=== PATIENT | male | born 1975 | race Caucasian/White ===

== ENCOUNTER 2016-09-21 04:53 | Emergency (ER) | payer BC, OTHER ==
--- NOTE | 2016-09-21 05:25 | ERNOTE ---
ER Male HPI Date of Service: 09/21/16 Stated Complaint: TROUBLE URINATING ER Male: urinary retention Time Seen by Provider: 09/21/16 05:18 Source: patient Exam Limitations: no limitations Immunizations: IMMUNIZATION HX Immunizations Up to Date Yes History of Influenza Vaccine No Allergies/Adverse Reactions: Allergies No Known Allergies Allergy (Verified 09/21/16 05:02) Home Medications: HOME MEDICATIONS Atenolol [Tenormin] 50 mg PO DAILY 07/12/12 [Last Taken Unknown] Omeprazole [Prilosec] 20 mg PO DAILY 04/30/15 [Last Taken Unknown] Atorvastatin Calcium [Lipitor] 20 mg PO HS 09/21/16 [Last Taken Unknown] - History of Present Illness Narrative: Pt claims he developed urinary hesitancy, and dribbling about 3 days ago, which got progressively worse. Did not notice any hematuria or dysuria. Tonight, developed complete urinary retention and severe suprapubic pressure. Has h/o kidney stone. Date (Duration): 09/18/16 Timing: Present: constant, getting worse Quality: Present: severe, fullness Onset Location: Present: suprapubic Radiation: Present: none Prior Abdominal Problems: Present: similar symptoms - about two years ago with kidney stone. Associated Symptoms: Absent: fever/chills, diaphoresis, nausea, vomiting, dysuria, urinary frequency, polyuria, loss of bladder control Review of Systems - Review of Systems Constitutional: Present: no symptoms reported EYE: Present: no symptoms reported ENT: Present: no symptoms reported Respiratory: Present: no symptoms reported Cardiology: Present: no symptoms reported Gastrointestinal/Abdominal: Present: See HPI Genitourinary: Present: decreased urinary output Musculoskeletal: Present: no symptoms reported Skin: Present: no symptoms reported Neurological: Present: no symptoms reported Endocrine: Present: no symptoms reported Hematologic/Lymphatic: Present: no symptoms reported Psych: Present: no symptoms reported All Other Systems: All systems neg except as marked - Patient's Past Medical History Patient History - Medical: GERD, Kidney stone, UTI'S, Other Patient History - Cardiac/Respiratory: Hypertension, Hyperlipidemia Patient History - Cancer: No Hx of Cancer Patient History - Surgical Procedures: No surgical history - Social History Living Situations: home Smoking Status: Never smoker Alcohol Use: none Drug Use: none - Immunizations Immunizations Up to Date: Yes History of Influenza Vaccine: No Physical Exam - Physical Exam General Appearance: Present: wd/wn, alert, mild distress - Due to pain Neck: Present: normal inspection, nontender Respiratory: Present: no respiratory distress, normal breath sounds, no accessory muscle use, chest nontender, lungs clear Cardiovascular/Chest: Present: regular rate, rhythm, no murmur Gastrointestinal/Abdominal: Present: normal bowel sounds, nondistended, soft, no organomegaly, tenderness - Suprapubic Neurological Exam: Present: alert, oriented, normal mood/affect Skin Exam: Present: normal color, warm/dry ED Progress - Results and Orders Patient's Lab Results:: I have reviewed the patient's lab results. - Vital Signs Patient's Vital Signs:: I have reviewed the patient's vital signs. Vital Signs: Vital Signs 09/21/16 04:57 Temperature 36.5 C Pulse Rate 73 Respiratory 20 Rate Blood Pressure 151/91 O2 Sat by Pulse 96 Oximetry - CT/Ultrasound CT/Ultrasound Narrative: CT abd/pelvis stone protocol: As noted in report, no evidence of kidney stone; mildly distended urinary bladder - Progress/Reassessment Chief Complaint: Genitourinary Problem Progress:: Unchanged - Unable to insert a gil catheter due to resistance at the prostate. Plan - Plan Plan: Case discussed with Dr. Owusu, Urologist, [facility]; pt transfer to ER accepted. Departure Clinical Impression: Urinary retention - Departure Disposition: [facility] Condition: Stable Referrals: Krishna Stanton MD [Primary Care Provider] -
--- OUTSIDE RECORDS SUMMARY | 2016-09-21 05:34 | XMS REPORT | Continuity of Care Document ---
:1975 Author Organization [employer] [place] [address] Care Team Providers Name Role Phone Krishna Stanton Primary Care Provider [phone] Source Comments This disclosure is being made pursuant to the I-DISPO program and maynot contain all information available regarding this patient.[employer] Active Allergies and Adverse Reactions Not on File Current Medications Be aware that medications may not be up to date as of this document. Alwaysverify current medications with the patient. Not on file Active Problems Not on file Social History Tobacco Use Types Packs/Day Years Used Date Never Assessed Plan of Care Health Maintenance Due Date Last Done Comments Retired-Pertussis Vaccine Adult 02/18/1992 Retired-Tetanus Vaccine Adult 02/18/1992 Retired-INFLUENZA VACCINE 04/02/2015 Results from Last 3 Months Not on file
[2016-09-21 05:47] LABS: Hematocrit 48.8 % (42.0-52.0); Hemoglobin 16.5 gm/dL (13.5-18.0); Mean Cell Volume 84.4 fl (78-100); Mean Corpuscular Hemoglobin 28.5 pg (27-31); Mean Corpuscular Hgb Conc 33.8 g/dl (32-36); Mean Platelet Volume 11.2 fl (6.0-9.5); Neutrophil # 5.9 K/mm3 (1.3-6.0); Neutrophil % 63.5 % (42-75.0); Platelet Count 165 K/mm3 (150-450); Red Blood Count 5.78 M/mm3 (4.7-6.0); Red Cell Distribution Width 13.1 % (11.5-14.0); White Blood Count 9.2 K/mm3 (4.0-10.5)
[2016-09-21 05:56] LABS: Anion Gap 13.5 mmol/L (6.8-13.8); BUN/Creatinine Ratio 19.1 (9.0-21.6); Carbon Dioxide 28.7 mmol/L (24-32.6); Estimated Creat Clear 77.4; Potassium 4.2 mmol/L (3.4-4.6)
[2016-09-21] MEDS ORDERED: oxyCODONE HCL/ACETAMINOPHEN 1 TAB TABLET PO ONE (05:58)
[2016-09-21] MEDS ORDERED: oxyCODONE HCL/ACETAMINOPHEN 1 TAB TABLET ONE (05:59)
[2016-09-21 06:15] VITALS: BP 161/89
== END 2016-09-21 06:10 | disposition short-term general hospital (02) ==
LOC: ER 04:53
DX: R33.9 Retention of urine, unspecified (principal); E78.5 Hyperlipidemia, unspecified

== ENCOUNTER 2016-11-20 18:18 | Emergency (ER) | payer BC, OTHER ==
[2016-11-20] MEDS ORDERED: ORPHENADRINE CITRATE 30 MG/ML VIAL IM ONE (18:52)
[2016-11-20] MEDS ORDERED: KETOROLAC TROMETHAMINE 30 MG/ML VIAL IM ONE (18:52)
[2016-11-20] MEDS ORDERED: oxyCODONE HCL/ACETAMINOPHEN 1 TAB TABLET PO ONE (18:52)
[2016-11-20] MEDS ORDERED: KETOROLAC TROMETHAMINE 30 MG/ML VIAL ONE (18:57)
[2016-11-20] MEDS ORDERED: ORPHENADRINE CITRATE 30 MG/ML VIAL ONE (18:57)
[2016-11-20] MEDS ORDERED: oxyCODONE HCL/ACETAMINOPHEN 1 TAB TABLET ONE (18:57)
--- OUTSIDE RECORDS SUMMARY | 2016-11-20 19:05 | XMS REPORT | Continuity of Care Document ---
:1975 Author Organization [facility] [place] [address] Care Team Providers Name Role Phone Krishna Stanton Primary Care Provider [phone] Source Comments This disclosure is being made pursuant to the [employer] program and maynot contain all information available regarding this patient.[facility] Active Allergies and Adverse Reactions Not on [...]
--- NOTE | 2016-11-20 19:40 | ERNOTE ---
Lower Extremity HPI - Narrative Date of Service: 11/20/16 - General Lower Extremities Pain: hip: right - Pain on movement that is localized on the lateral side and radiates to the back area Time Seen by Provider: 11/20/16 18:47 Source: patient Exam Limitations: no limitations - Immun/Allergies/Home Medications Immunizations: IMMUNIZATION HX Immunizations Up to Date Yes History of Influenza Vaccine No Allergies/Adverse Reactions: Allergies Allergy/AdvReac Type Severity Reaction Status Date / Time No Known Allergies Allergy Verified 11/20/16 18:36 Home Medications: HOME MEDICATIONS Omeprazole [Prilosec] 20 mg PO DAILY 04/30/15 [Last Taken Unknown] Lisinopril [Zestril] 10 mg PO DAILY 11/20/16 [Last Taken Unknown] Naproxen 500 mg PO BID #20 tablet. 11/20/16 [Last Taken Unknown] Orphenadrine Citrate [Norflex] 100 mg PO Q12H #14 tablet. 11/20/16 [Last Taken Unknown] Sulfamethoxazole/Trimethoprim [Bactrim 400-80 mg Tablet] 1 each PO DAILY [Last Taken Unknown] oxyCODONE HCL/ACETAMINOPHEN [Percocet 5 MG/325 MG] 1 tab PO Q6H #12 tablet 11/20 [Last Taken Unknown] - History of Present Illness Narrative: Patient reported that he was working and put some weight on his R hip area that caused pain. Patient now with a pain on the lateral side of the hip that is reproducible with movement and on placing weight on the area. Patient denied any direct blow or any fall at this point. Patient with no loss of sensation and no open wounds. Occurred: just prior to arrival Location of Incident: work Method of Injury: Reports: twisted. Denies: fell, direct blow, fainted, motor vehicle accident, assault, burn, incised, sports injury Reason for Fall: Reports: unknown Loss of Consciousness: Denies: no loss of consciousness, brief (seconds), prolonged (minutes), dazed, still comatose, unsure Modifying Factors - (Improves): Reports: immobilization, other - avoid putting weight on the R hip area Modifying Factors - (Worsens): Reports: movement Associated Symptoms: Reports: unable to bear weight. Denies: dizzy/light headedness, headache, weakness, sensory loss, chest pain, vomiting/diarrhea, bowel/bladder problems, other injuries Other Injuries: Reports: none Subsequent Symptoms: Denies: sensory loss, numbness, motor loss, bowel/bladder problem Prior Treament: Denies: recently seen Review of Systems - Review of Systems Constitutional: Present: no symptoms reported. Absent: recent illness, fever, chills, diaphoresis, weakness, fatigue, malaise EYE: Present: no symptoms reported ENT: Present: no symptoms reported Respiratory: Present: no symptoms reported Cardiology: Present: no symptoms reported Gastrointestinal/Abdominal: Present: no symptoms reported Genitourinary: Present: no symptoms reported Musculoskeletal: Present: muscle pain - on R hip lateral area, joint swelling - R hip area Skin: Absent: rash, dryness, lesions Neurological: Present: no symptoms reported Endocrine: Present: no symptoms reported Hematologic/Lymphatic: Present: no symptoms reported Psych: Present: no symptoms reported All Other Systems: All systems neg except as marked - Patient's Past Medical History Patient History - Medical: GERD, Kidney stone, UTI'S, Other Patient History - Cardiac/Respiratory: Hypertension, Hyperlipidemia Patient History - Cancer: No Hx of Cancer Patient History - Surgical Procedures: Other, Urology - Social History Living Situations: home Smoking Status: Never smoker Alcohol Use: none Drug Use: none - Immunizations Immunizations Up to Date: Yes History of Influenza Vaccine: No Physical Exam - Physical Exam General Appearance: Present: wd/wn, alert, no apparent distress Eye Exam: Normal inspection: bilateral, PERRL: bilateral, EOMI: bilateral Ears, Nose, Throat: Present: normal ENT inspection, normal pharynx Neck: Present: normal inspection, nontender Respiratory: Present: no respiratory distress, normal breath sounds, no accessory muscle use, chest nontender, lungs clear Cardiovascular/Chest: Present: regular rate, rhythm, no murmur, normal peripheral pulses Gastrointestinal/Abdominal: Present: normal bowel sounds, nontender, nondistended, soft, no organomegaly Back Exam: Present: normal inspection, normal range of motion, no CVA tenderness , no vertebral tenderness Extremity Exam: Present: normal inspection, no edema, decreased range of motion - due to pain, other - Patient has pain over the R tensor fasciae latae proximal tendon complex. There is good sensation and good pulse at the dorsalis pedis area.. Absent: calf tenderness, bony tenderness, joint swelling Neurological Exam: Present: alert, oriented, normal mood/affect, no motor/ sensory deficits Skin Exam: Present: normal color, warm/dry Lymphatic Exam: Present: no adenopathy ED Progress - Vital Signs Patient's Vital Signs:: I have reviewed the patient's vital signs. Vital Signs: Vital Signs 11/20/16 18:30 Temperature 36.5 C Pulse Rate 72 Respiratory 16 Rate Blood Pressure 139/71 O2 Sat by Pulse 100 Oximetry - X-Ray X-Ray #1 X-Ray: hip Interpretation: Interp. by me X-ray Comments: Hip and Pelvis: No Fx seen on film. Loss of inter articular space on the acetabulum area X-Ray #2 X-Ray: l-spine - No Fx seen. Interpretation: Interp. by me - Progress/Reassessment Chief Complaint: Hip Pain/Injury Progress:: Improved - Transfer of Care Expected Disposition: Discharge Plan - Plan Plan: Patient is to follow up with his Worker Comp Provider or PCP Departure Clinical Impression: Hip pain, right Sprain of hip Qualifiers: Encounter type: initial encounter Laterality: right Qualified Code(s): S73.101A - Unspecified sprain of right hip, initial encounter - Departure Disposition: Home self-care Condition: Stable Instructions: Hip Pain, Muscle Strain, [id number] Referrals: Yuki Botello DO [Primary Care Provider] - Prescriptions: Naproxen 500 mg PO BID #20 tablet. Orphenadrine Citrate [Norflex] 100 mg PO Q12H #14 tablet.sa oxyCODONE HCL/ACETAMINOPHEN [Percocet 5 MG/325 MG] 1 tab PO Q6H #12 tablet
[2016-11-20 20:31] VITALS: BP 124/67
== END 2016-11-20 19:50 | disposition home or self-care (01) ==
LOC: ER 18:18
DX: S73.101A Unspecified sprain of right hip, initial encounter (principal); M54.5 Low back pain; K21.9 Gastro-esophageal reflux disease without esophagitis; Y99.0 Civilian activity done for income or pay